=== PATIENT | female | born 1995 | race Caucasian/White ===

== ENCOUNTER 2020-10-17 22:23 | Emergency (ER) | payer OTHER ==
[2020-10-18] MEDS ORDERED: BACTRIM DS TAB1 EACH PO ×2 (00:52→01:27)
[2020-10-18] MEDS ORDERED: CIPRO500 MG PO (01:30)
== END 2020-10-18 01:52 | disposition home or self-care (01) ==
LOC: FER 22:23
DX: S91.332A Puncture wound without foreign body, left foot, initial encounter (principal); W45.0XXA Nail entering through skin, initial encounter
CPT/HCPCS: 73630